=== PATIENT | female | born 1990 | race Caucasian/White ===

== ENCOUNTER 2024-05-31 21:36 | Emergency (ER) | payer MEDICAID, OTHER ==
--- NOTE | 2024-05-31 21:52 | ERPHSYRPT ---
- History of Present Illness Source: patient Exam Limitations: no limitations Physician History: Patient was brought in by EMS. She was having some rectal bleeding. She said she had episode of large amount of maroon-colored blood. Then she had 1 more. She has had problems with this in the past. She has had a surgical intervention via colonoscopy and they put some clamps on some bleeding areas.That was little over a month ago. She also has a history of CVA and says that she has had heart attack or 2. She is in the process of getting worked up for a bleeding disorder or clotting disorder. She is not having any abdominal pain. She does appear to be pale. She has chronic anemia however.Nothing makes his symptoms better or worse. Timing/Duration: hour(s) (2 hours ago.) Severity: moderate Allergies/Adverse Reactions: empagliflozin [From Jardiance] Allergy (Severe, Verified 05/31/24 21:52) Home Medications: Aspirin EC 81 mg [Ecotrin 81 mg] 1 tab PO DAILY 05/31/24 [History] Atorvastatin Calcium 80 mg PO HS 05/31/24 [History] Bumetanide 1 mg [Bumex 1 mg] 1 mg PO BID 05/31/24 [History] Carvedilol 3.125 mg [Coreg 3.125 MG] 1 tab PO BID 05/31/24 [History] Ferrous Gluconate 1 tab PO DAILY 05/31/24 [History] Metformin HCl 500 mg [Glucophage 500 MG] 1,000 mg PO BID 05/31/24 [History] PANTOPRAZOLE 40 mg Tablet [Protonix 40MG Tablet] 1 tab PO DAILY 05/31/24 [History] Sacubitril/Valsartan [Entresto 24 mg-26 mg Tablet] 0.5 tab PO BID 05/31/24 [History] Spironolactone 0.5 mg PO DAILY 05/31/24 [History] Ticagrelor [Brilinta] 1 tab PO BID 05/31/24 [History] Valsartan 80 mg PO BID 05/31/24 [History] - Review of Systems Constitutional: No Symptoms, Lethargy, Weakness, Other (Dizziness) Eyes: No Symptoms Respiratory: No Symptoms Cardiac: No Symptoms Skin: Other (Pallor) All Other Systems: Reviewed and Negative - Female History Hx Now: No - Nursing Vital Signs Nursing Vital Signs: Initial Vital Signs O2 Sat by Pulse Oximetry 100 05/31/24 21:39 Pain Scale Pain Intensity 0 - Physical Exam General Appearance: no apparent distress Eye Exam: PERRL/EOMI, pale conjunctivae Neck Exam: normal inspection Respiratory Exam: normal breath sounds, chest tenderness Gastrointestinal/Abdomen Exam: soft, normal bowel sounds, No tenderness Rectal Exam: other Neurologic Exam: alert, oriented x 3, cooperative Skin Exam: other (Pallor) Ordered Tests: Active Orders 24 hr Category Date Time Status ABDOMEN AND PELVIS W&WO CONTRA [CT] Stat Exams 05/31/24 21:44 Completed CBC W DIFF Stat Lab 05/31/24 22:11 Completed CMP Stat Lab 05/31/24 22:11 Completed HCG QUALITATIVE, SERUM Stat Lab 05/31/24 22:11 Completed Lactic Acid Stat Lab 05/31/24 21:45 Completed Medication Summary Generic Name Dose Route Start Last Admin Trade Name Jeremiahq PRN Reason Stop Dose Admin Sodium Chloride 1,000 mls @ 999 mls/hr 05/31/24 22:45 06/01/24 00:12 Sodium Chloride 0.9% 1000 Ml IV 06/30/24 22:44 Infused .Q1H1M JONAS Infusion Sodium Chloride 1,000 mls @ 999 mls/hr 06/01/24 01:11 06/01/24 01:12 Sodium Chloride 0.9% 1000 Ml IV 06/01/24 02:11 999 mls/hr .Q1H1M STA Administration Sodium Chloride 1,000 mls @ 250 mls/hr 06/01/24 01:11 Sodium Chloride 0.9% 1000 Ml IV 06/01/24 05:10 .Q4H STA Lab/Rad Data: Laboratory Result Diagrams 05/31/24 22:11 05/31/24 22:11 Laboratory Results 05/31/24 05/31/24 05/31/24 Range/Units 22:11 22:11 22:11 WBC 10.1 H (3.98-10.04) x10^3/uL RBC 2.69 L (3.93-5.22) x10^6/uL Hgb 7.4 L (11.2-15.7) g/dL Hct 23.2 L (34.1-44.9) % MCV 86.2 (79.4-94.8) fL MCH 27.5 (25.6-32.2) pg MCHC 31.9 L (32.2-35.5) g/dL RDW 14.5 H (11.7-14.4) % Plt Count 369 (182-369) x10^3/uL MPV 8.7 L (9.4-12.3) fL Gran % 64.9 (34.0-71.1) % Immature Gran % (Auto) 0.6 H (0.001-0.429) % Nucleat RBC Rel Count 0.0 (0.00-0.2) % Eos # (Auto) 0.30 (0.04-0.36) x10^3/uL Immature Gran # (Auto) 0.06 H (0.001-0.031) x10^3u/L Absolute Lymphs (auto) 2.22 (1.18-3.74) x10^3/uL Absolute Monos (auto) 0.86 (0.24-0.86) x10^3/uL Absolute Nucleated RBC 0.00 (0.00-0.012) x10^3u/L Lymphocytes % 22.0 (19.3-51.7) % Monocytes % 8.5 (4.7-12.5) % Eosinophils % 3.0 (0.7-5.8) % Basophils % 1.0 (0.1-1.2) % Absolute Granulocytes 6.54 H (1.56-6.13) x10^3/uL Basophils # 0.10 H (0.01-0.08) x10^3/uL Sodium 138 (135-145) mmol/L Potassium 4.0 (3.5-5.1) mmol/L Chloride 105 (98-107) mmol/L Carbon Dioxide 23 (22-30) mmol/L Anion Gap 15.1 H (5-15) MEQ/L BUN 19 H (7-17) mg/dL Creatinine 0.54 (0.52-1.04) mg/dL Estimated GFR 125.4 ML/MIN Glucose 205 H (74-106) mg/dL Lactic Acid (0.4-2.0) Calcium 8.6 (8.4-10.2) mg/dL Total Bilirubin 0.30 (0.2-1.3) mg/dL AST 26 (14-36) U/L ALT 14 (0-35) U/L Alkaline Phosphatase 76 (38-126) U/L Serum Total Protein 6.8 (6.3-8.2) g/dL Albumin 4.1 (3.5-5.0) g/dL Serum HCG, Qual NEGATIVE (NEGATIVE) ABO Group Rh Factor Antibody Screen (NEGATIVE) Crossmatch (COMPATIBLE) 05/31/24 05/31/24 05/31/24 Range/Units 21:50 21:50 21:45 WBC (3.98-10.04) x10^3/uL RBC (3.93-5.22) x10^6/uL Hgb (11.2-15.7) g/dL Hct (34.1-44.9) % MCV (79.4-94.8) fL MCH (25.6-32.2) pg MCHC (32.2-35.5) g/dL RDW (11.7-14.4) % Plt Count (182-369) x10^3/uL MPV (9.4-12.3) fL Gran % (34.0-71.1) % Immature Gran % (Auto) (0.001-0.429) % Nucleat RBC Rel Count (0.00-0.2) % Eos # (Auto) (0.04-0.36) x10^3/uL Immature Gran # (Auto) (0.001-0.031) x10^3u/L Absolute Lymphs (auto) (1.18-3.74) x10^3/uL Absolute Monos (auto) (0.24-0.86) x10^3/uL Absolute Nucleated RBC (0.00-0.012) x10^3u/L Lymphocytes % (19.3-51.7) % Monocytes % (4.7-12.5) % Eosinophils % (0.7-5.8) % Basophils % (0.1-1.2) % Absolute Granulocytes (1.56-6.13) x10^3/uL Basophils # (0.01-0.08) x10^3/uL Sodium (135-145) mmol/L Potassium (3.5-5.1) mmol/L Chloride (98-107) mmol/L Carbon Dioxide (22-30) mmol/L Anion Gap (5-15) MEQ/L BUN (7-17) mg/dL Creatinine (0.52-1.04) mg/dL Estimated GFR ML/MIN Glucose (74-106) mg/dL Lactic Acid 1.4 (0.4-2.0) Calcium (8.4-10.2) mg/dL Total Bilirubin (0.2-1.3) mg/dL AST (14-36) U/L ALT (0-35) U/L Alkaline Phosphatase (38-126) U/L Serum Total Protein (6.3-8.2) g/dL Albumin (3.5-5.0) g/dL Serum HCG, Qual (NEGATIVE) ABO Group O Rh Factor NEGATIVE Antibody Screen NEGATIVE (NEGATIVE) Crossmatch COMPATIBLE COMPATIBLE (COMPATIBLE) - Progress Progress: unchanged Progress Note: Patient required some IV fluids. She got 2-1/2 L while she was here. We also started a blood transfusion. She did not have any active bleeding while she was here.Her pressures were running a little soft. Were anywhere from 80-100 systolic. She got a little bit lightheaded. Her hemoglobin was stable though it was 7.4. It was down 2 points from 2 weeks ago she had a 9.6.Patient appears to be in some hemorrhagic shock. When to try to bolus her with some more fluids as well as the blood products.We may need to hang pressors. I spoke with the GI doctor at [facility]. They agreed to accept her in transfer. 06/01/24 01:25 Medical Desision Making - External Record(s) Reviewed Records reviewed as a part of evaluation & management: Inpatient - Discussion of managment Care discussed with:: specialist Reviewed:: Test results, Need for additional workup Agreed on:: Treatment plan Will see patient: in hospital - Departure Departure Disposition: Transfer Clinical Impression: GI bleed Condition: Fair Critical Care Time: No Referrals: JULIO CESAR CASTELLON MD [ACTIVE STAFF] - Follow up/PCP as directed
[2024-05-31 22:13] LABS: Absolute Neutrophil Ct (ANC) 6.54 x10^3/uL (1.56-6.13); Hematocrit 23.2 % (34.1-44.9); Hemoglobin 7.4 g/dL (11.2-15.7); IMMATURE GRAN # 0.06 x10^3u/L (0.001-0.031); IMMATURE GRAN % 0.6 % (0.001-0.429); Lymphocyte (Absolute #) 2.22 x10^3/uL (1.18-3.74); Mean Cell Volume 86.2 fL (79.4-94.8); Mean Corpuscular Hemoglobin 27.5 pg (25.6-32.2); Mean Corpuscular Hgb Concent. 31.9 g/dL (32.2-35.5); Mean Platelet Volume 8.7 fL (9.4-12.3); Monocyte (Absolute #) 0.86 x10^3/uL (0.24-0.86); Monocytes % 8.5 % (4.7-12.5); Neutrophil % 64.9 % (34.0-71.1); Platelet Count 369 x10^3/uL (182-369); Red Blood Count 2.69 x10^6/uL (3.93-5.22); Red Cell Distribution Width 14.5 % (11.7-14.4); White Blood Count 10.1 x10^3/uL (3.98-10.04)
[2024-05-31 22:26] LABS: ALBUMIN 4.1 g/dL (3.5-5.0); ANION GAP 15.1 MEQ/L (5-15); BILIRUBIN,TOTAL 0.3 mg/dL (0.2-1.3); Calcium 8.6 mg/dL (8.4-10.2); Creatinine 1 0.54 mg/dL (0.52-1.04); EST GLOMERULAR FILTRATION RATE 125.4 ML/MIN; HCG SERUM TEST NEGATIVE (NEGATIVE); Total Protein 6.8 g/dL (6.3-8.2)
[2024-05-31] MEDS ORDERED: Sodium Chloride 0.9% 1000 ML 1,000 ML ONE (22:40)
[2024-05-31] MEDS: Sodium Chloride 0.9% 1000 ML 1,000 ML IV SCH (22:49)
[2024-06-01] MEDS ORDERED: Sodium Chloride 0.9% 1000 ML 1,000 ML ONE ×2 (00:07→00:23)
[2024-06-01 00:50] LABS: ABO TYPING O; Antibody Screen NEGATIVE (NEGATIVE); RH TYPING NEGATIVE
[2024-06-01 00:52] LABS: CROSS MATCH (PRBC) COMPATIBLE (COMPATIBLE)
[2024-06-01 00:53] LABS: CROSS MATCH (PRBC) COMPATIBLE (COMPATIBLE)
[2024-06-01] MEDS: Sodium Chloride 0.9% 1000 ML 1,000 ML IV STA ×2 (01:12→02:11)
--- NOTE | 2024-06-01 01:17 | XRAY ---
CLINICAL HISTORY: rectal bleed COMPARISON: None TECHNIQUE: Contiguous axial images were obtained from the level of the diaphragm to the pubic symphysis with and without intravenous contrast. Coronal and sagittal reconstructions were likewise performed and indicated to increase the sensitivity for detecting clinically relevant pathology. If IV contrast material had not been administered, the likelihood of detecting abnormalities relevant to the patient's condition would have been substantially decreased. CT scan was performed according to ALARA (as low as reasonable achievable). FINDINGS: The visualized lung bases are clear. The liver is normal in size and attenuation. No focal liver lesions are seen. There is no intra or extrahepatic biliary ductal dilatation. Hepatic vasculature is patent. The gallbladder is present. The spleen, pancreas, and adrenal glands are unremarkable. The kidneys are normal in size and attenuation. There is no hydronephrosis or perinephric fat stranding. No renal calculi or renal masses are identified. The ureters are normal in caliber and no ureteral calculi are seen. The bladder is normal in contour. Pelvic viscera are unremarkable. No focal or diffuse bowel wall thickening or evidence of bowel obstruction is identified. The appendix is visualized in the right lower quadrant and appears within normal limits. Abdominal and pelvic vasculature is patent. No adenopathy or fluid collections are seen. No aggressive appearing osseous lesions are identified. Few metallic substance/material is noted in ascending colon. IMPRESSION: 1. Few metallic substance/material is noted in ascending colon. 2. No other abnormality seen. Electronically Signed by: Avila Saenz MD. (06/01/2024 01:11:33 EST)
[2024-06-01 02:08] VITALS: O2SAT 100
[2024-06-01 02:56] VITALS: BP 74/55; PULSE 105; RESP 18; TEMP 98.7
== END 2024-06-01 03:00 | disposition short-term general hospital (02) ==
LOC: ED 21:36
DX: K92.2 Gastrointestinal hemorrhage, unspecified (principal); I95.9 Hypotension, unspecified; D64.9 Anemia, unspecified; E11.9 Type 2 diabetes mellitus without complications; Z79.84 Long term (current) use of oral hypoglycemic drugs; Z79.02 Long term (current) use of antithrombotics/antiplatelets; Z79.899 Other long term (current) drug therapy; Z72.0 Tobacco use
CPT/HCPCS: 36415; 36430; 74178; 80053; 83605; 84703; 85025; 86850; 86900; 86901; 86922; 96360; 96361; 99285; P9016